=== PATIENT | male | born 1980 | race Caucasian/White ===

== ENCOUNTER 2017-09-07 06:08 | Day surgery (SDC) | payer OTHER ==
[~2017-09-07 06:08] MED LIST: CANABIS MEDICINAL; CARAFATE1 GM/10 ML; PROTONIX40 MG; SOMA250 MG; VISTARIL50 MG PO; [UNRECOGNIZED DRUG - OTHER]
== END 2017-09-07 12:26 | disposition home or self-care (01) ==
LOC: CIR.AMB 06:08
DX: K80.10 Calculus of gallbladder with chronic cholecystitis without obstruction (principal)